=== PATIENT | female | born 1970 | race Caucasian/White ===

== ENCOUNTER → 2021-02-13 09:42 | Outpatient (CLI) | payer BC, SELFPAY ==
[2021-02-13] MEDS: COVID-19 VACC #1, MRNA(MOD) 100 MCG/0.5 ML VIAL IM (09:51)
== END ==
PROVIDERS: Visit Provider Internal Medicine
DX: Z23 Encounter for immunization (principal)
CPT/HCPCS: 0011A; 91301

== ENCOUNTER → 2021-03-13 09:28 | Outpatient (CLI) | payer BC, SELFPAY ==
[2021-03-13] MEDS: COVID-19 VACC #2, MRNA(MOD) 100 MCG/0.5 ML VIAL IM (09:34)
== END ==
PROVIDERS: Visit Provider Internal Medicine
DX: Z23 Encounter for immunization (principal)
CPT/HCPCS: 0012A; 91301